=== PATIENT | male | born 1945 | race Caucasian/White ===

== ENCOUNTER 2019-11-22 13:55 | Outpatient (CLI) | payer MEDICARE, SELFPAY ==
--- NOTE | ~2019-11-22 | CT_ITS ---
EXAMINATION: CT abdomen pelvis wo/w con EXAM DATE: 11/22/2019 15:13 INDICATION: Microscopic hematuria. TECHNIQUE: Spiral CT of the abdomen and pelvis was performed without contrast. The patient was then injected with small bolus intravenous Omnipaque 350, followed by delay of approximately 10 minutes to allow collecting system to opacify. A post contrast scan abdomen and pelvis was performed during inj ection of remaining contrast. A total of 130 cc intravenous contrast was administered. The dose-gumaro th product (DLP) for this examination was 542.47 mGy-cm. The exposure was tailored according to pop ent size (auto mA exposure control), and iterative reconstruction (ASIR) was used as additional dose reduction technique. There is no prior study for comparison. FINDINGS: There is infrarenal aneurysmal dilation of the abdominal aorta, measuring up to 5.0 cm. The re is also dilation of both common iliac arteries and severe ectasia of the right common iliac artery which has a kink in it. Left common iliac artery measures up to 1.7 cm. The left internal iliac redd ry is dilated up to 3.0 cm. Right-sided superficial femoral arterial stent and external iliac arteria l stent. There is no hydronephrosis or nephrolithiasis. Small exophytic right renal cyst measuring 9 mm. The kidneys enhance symmetrically. There are no suspicious renal lesions. The calyces and opacified po rtions of ureters are unremarkable, without filling defects or focal suspicious strictures. The blad lani is unremarkable. There is mild prostatomegaly. The liver, spleen, adrenal glands and pancreas are unremarkable. Gallbladder not identified, patient likely has had cholecystectomy. There is no retroperitoneal or pelvic lymphadenopathy. The append ix is normal. The stomach and small bowel are unremarkable. There is expected amount of colonic sto ol. No free intraperitoneal gas. The heart is normal in size. There are no pericardial or pleura l effusions. There is moderate to severe basilar emphysema. There is a round noncalcified left lower lobe nodule m easuring 3 mm, axial lung window image 15, most likely a noncalcified granuloma. There are no osteob lastic or osteolytic lesions identified. IMPRESSION: 1. Incidental abdominal aortic aneurysm up to 5 cm. Recommend vascular consult. 2. 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 3. Incidental left lower lobe nodule most likely noncalcified granuloma. Can be reevaluated on follo w-up abdomen pelvis CT for aneurysm/treatment. 4. Mild prostatomegaly. Otherwise unremarkable genitourinary system. 5. Moderate to severe emphysema. Reviewed, dictated and finalized at location A. IMPRESSION: 1. Incidental abdominal aortic aneurysm up to 5 cm. Recommend vascular consult . 2. 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 Bilateral iliac ectasia and dila tion. 3. Incidental left lower lobe nodule most likely noncalcified granuloma. Can b e reevaluated on follow-up abdomen pelvis CT for aneurysm/treatment. 4. Mild prostatomegaly. Otherwise unremarkable genitourinary system. 5. Moderate to severe emphysema.
[2019-11-22 14:53] LABS: Estimated Glomerular Filt Rate 39
== END 2019-11-22 13:56 | disposition home or self-care (01) ==
PROVIDERS: PCP Urology; Visit Provider Urology
DX: R31.1 Benign essential microscopic hematuria (principal); J43.9 Emphysema, unspecified; N40.0 Benign prostatic hyperplasia without lower urinary tract symptoms; I72.3 Aneurysm of iliac artery; I71.4 Abdominal aortic aneurysm, without rupture
CPT/HCPCS: 36415; 74178; Q9967